=== PATIENT | female | born 1970 | race Caucasian/White ===

== ENCOUNTER → 2016-05-10 | Emergency (ER) | payer OTHER ==
[~2016-05-10] VITALS: Ht 167.6 cm; Wt 88.5 kg
[~2016-05-10] MED LIST: IV NS 0.9% 1,000 ML BAG IV ONE; IV NS 0.9% 1,000 ML ONE; IV SET PRIMARY PUMP SET 1 EA INFUS.SET MC ONE; LORA2TAB PO; MORPHINE SULFATE INJ 2 MG/ML DISP.SYRIN IV ONE; MORPHINE SULFATE INJ 4 MG/ML DISP.SYRIN ONE; OMEP20CA10 PO; ONDA8TAB6 PO; ONDANSETRON HCL/PF 4 MG/2 ML VIAL IVP ONE; ONDANSETRON HCL/PF 4 MG/2 ML VIAL ONE; PROM50TA5 PO; TRIM300C14 PO
[2016-05-10 09:58] LABS: BASOPHILS % (AUTO) 0.6 % (0.0-2.0); DIFF TOTAL % 100 %; EOSINOPHILS # (AUTO) 0.4 /CMM (0.0-0.7); EOSINOPHILS % (AUTO) 5.3 % (0.0-6.0); HEMATOCRIT 30 % (33-45); HEMOGLOBIN 9.3 g/dL (11.5-14.8); LYMPHOCYTES # (AUTO) 2.4 /CMM (0.8-4.8); LYMPHOCYTES % (AUTO) 30.3 % (20.0-44.0); MEAN CORPUSCULAR HEMOGLOBIN 22 PG (26.0-33.0); MEAN CORPUSCULAR HGB CONC 31 g/dl (31.0-36.0); MEAN CORPUSCULAR VOLUME 70 fL (82-100); MONOCYTES # (AUTO) 0.4 /CMM (0.1-1.30); MONOCYTES % (AUTO) 5.2 % (2.0-12.0); NEUTROPHILS # (AUTO) 4.6 /CMM (1.8-8.9); NEUTROPHILS % (AUTO) 58.6 % (43.0-81.0); PLATELET COUNT (AUTO) 200 /CMM (150-450); RED BLOOD CELL COUNT(AUTO) 4.34 MIL/uL (4.0-5.2); WHITE BLOOD COUNT (AUTO) 7.8 K/uL (4.3-11.0)
[2016-05-10 10:04] LABS: CALCIUM, SERUM 8.3 mg/dL (8.5-10.1); CREATININE 0.9 mg/dL (0.6-1.3)
[2016-05-10 10:09] LABS: ALBUMIN 3.5 g/dL (3.4-5.0); BILIRUBIN,TOTAL 0.2 mg/dL (0.2-1.0)
[2016-05-10 10:19] LABS: ANISOCYTOSIS 2+; EOSINOPHILS % (MANUAL) 1 % (0-4); INDIRECT BILIRUBIN 0.2 mg/dL (0.0-1.1); LYMPHOCYTES % (MANUAL) 31 % (16-48); MICROCYTOSIS 2+; PLATELET ESTIMATE ADEQUATE
[2016-05-10 10:20] LABS: HYPOCHROMASIA 2+; POLYCHROMASIA SLT
[2016-05-10 12:53] VITALS: BP 111/75
== END | disposition home or self-care (01) ==
LOC: ER 09:22
DX: R11.2 Nausea with vomiting, unspecified (principal); R10.84 Generalized abdominal pain; I10 Essential (primary) hypertension; K31.84 Gastroparesis; Z88.6 Allergy status to analgesic agent; Z88.4 Allergy status to anesthetic agent; Z88.5 Allergy status to narcotic agent; Z91.048 Other nonmedicinal substance allergy status
CPT/HCPCS: 36415; 80048-TC; 80076-TC; 83690-TC; 85025-TC; A4606; J2270; J2405; J7030; Z7610

== ENCOUNTER 2016-07-09 16:54 | Emergency (ER) | payer OTHER ==
[~2016-07-09] VITALS: Ht 165.1 cm; Wt 74.8 kg
[~2016-07-09 16:54] MED LIST changes: -IV NS 0.9% 1,000 ML BAG IV ONE; -IV NS 0.9% 1,000 ML ONE; -IV SET PRIMARY PUMP SET 1 EA INFUS.SET MC ONE; -MORPHINE SULFATE INJ 2 MG/ML DISP.SYRIN IV ONE; -MORPHINE SULFATE INJ 4 MG/ML DISP.SYRIN ONE; -ONDANSETRON HCL/PF 4 MG/2 ML VIAL IVP ONE; -ONDANSETRON HCL/PF 4 MG/2 ML VIAL ONE
--- NOTE | 2016-07-09 17:01 | NUR ---
PRESENTS SELF TO ED DUE TO ABDOMINAL PAIN, 12/09, NON RADIATING X 30 MINS. PATIENT IS AA04. SATING WELL ON ROOM AIR,. PATIENT REPORTED N/V/D. SKIN IS WARM TO TOUCH AND NON DIAPHORETIC. PATIENT IS AFEBRILE. VSS.
[2016-07-09] MEDS ORDERED: MORPHINE SULFATE INJ 2 MG/ML DISP.SYRIN IV ONE (17:30)
[2016-07-09] MEDS ORDERED: diphenhydrAMINE HCL 50 MG/ML VIAL IV ONE (17:30)
[2016-07-09] MEDS ORDERED: IV NS 0.9% 1,000 ML BAG IV ONE (17:30)
[2016-07-09] MEDS ORDERED: ONDANSETRON HCL/PF 4 MG/2 ML VIAL IVP ONE (17:30)
[2016-07-09] MEDS ORDERED: diphenhydrAMINE HCL 50 MG/ML VIAL ONE (17:41)
[2016-07-09] MEDS ORDERED: ONDANSETRON HCL/PF 4 MG/2 ML VIAL ONE ×2 (17:42→19:14)
[2016-07-09] MEDS ORDERED: IV NS 0.9% 1,000 ML ONE (17:42)
[2016-07-09] MEDS ORDERED: MORPHINE SULFATE INJ 4 MG/ML DISP.SYRIN ONE (17:42)
[2016-07-09] MEDS ORDERED: IV SET PRIMARY 1 EA INFUS.SET MC ONE (17:42)
[2016-07-09 17:50] LABS: BASOPHILS # (AUTO) 0.2 /CMM (0.0-0.2); BASOPHILS % (AUTO) 1.8 % (0.0-2.0); EOSINOPHILS # (AUTO) 0.2 /CMM (0.0-0.7); EOSINOPHILS % (AUTO) 1.8 % (0.0-6.0); HEMATOCRIT 32 % (33-45); HEMOGLOBIN 10.1 g/dL (11.5-14.8); LYMPHOCYTES # (AUTO) 2.1 /CMM (0.8-4.8); LYMPHOCYTES % (AUTO) 23.1 % (20.0-44.0); MEAN CORPUSCULAR HEMOGLOBIN 23 PG (26.0-33.0); MEAN CORPUSCULAR HGB CONC 32 g/dl (31.0-36.0); MEAN CORPUSCULAR VOLUME 70 fL (82-100); MONOCYTES # (AUTO) 0.4 /CMM (0.1-1.30); NEUTROPHILS # (AUTO) 6.4 /CMM (1.8-8.9); NEUTROPHILS % (AUTO) 69.3 % (43.0-81.0); PLATELET COUNT (AUTO) 225 /CMM (150-450); RDW COEFFICIENT OF VARIATION 19.5 (11.5-15.0); WHITE BLOOD COUNT (AUTO) 9.3 K/uL (4.3-11.0)
--- NOTE | 2016-07-09 17:55 | NUR ---
MEDICATED PATIENT ORDERED
[2016-07-09 17:57] LABS: CALCIUM, SERUM 8.8 mg/dL (8.5-10.1); CREATININE 1.1 mg/dL (0.6-1.3); POTASSIUM 3.4 mmol/L (3.5-5.1)
[2016-07-09 18:03] LABS: ALBUMIN 3.9 g/dL (3.4-5.0); BILIRUBIN,TOTAL 0.3 mg/dL (0.2-1.0); TOTAL PROTEIN, SERUM 7.3 g/dL (6.4-8.2)
[2016-07-09] MEDS ORDERED: HALOPERIDOL LACTATE INJ 5 MG/ML VIAL IVP ONE (18:30)
[2016-07-09] MEDS ORDERED: HALOPERIDOL LACTATE INJ 5 MG/ML VIAL ONE (18:35)
--- NOTE | 2016-07-09 19:10 | NUR ---
REPORT GIVEN TO NURSE TO JAD FOR MARY
--- NOTE | 2016-07-09 19:21 | NUR ---
MEDICATED PT ORDERED
[2016-07-09] MEDS ORDERED: ONDANSETRON HCL/PF 4 MG/2 ML VIAL IV ONE (19:30)
[2016-07-09 19:37] VITALS: BP 138/80
--- NOTE | 2016-07-09 19:38 | NUR ---
Patient discharged to home in stable condition. Written and verbal after care instructions given. Patient verbalizes understanding of instruction.IV removed. Catheter intact and site benign. Pressure and 4x4 applied to site. No bleeding noted. PT ambulatory with a steady gait VITAL SIGNS WITHIN NORMAL LIMITS.
== END 2016-07-09 19:40 | disposition home or self-care (01) ==
LOC: ER 16:56
DX: R10.84 Generalized abdominal pain (principal); G89.29 Other chronic pain; R19.7 Diarrhea, unspecified; F41.9 Anxiety disorder, unspecified; D64.9 Anemia, unspecified; E87.6 Hypokalemia; I10 Essential (primary) hypertension; Z88.6 Allergy status to analgesic agent; Z88.5 Allergy status to narcotic agent; Z88.8 Allergy status to other drugs, medicaments and biological substances
CPT/HCPCS: 36415; 80048-TC; 80076-TC; 83690-TC; 84703-TC; 85025-TC; A4606; J1200; J1630; J2270; J2405; J7030; Z7610

== ENCOUNTER 2016-09-01 12:03 | Emergency (ER) | payer OTHER ==
[~2016-09-01] VITALS: Ht 172.7 cm; Wt 101.2 kg
--- NOTE | 2016-09-01 12:07 | NUR ---
PT BB FAMILY; LOWER ABD PAIN WITH NAUSEA SINCE LAST NIGHT. PLACED ON MONITOR. AWAITING MD ORDER
--- NOTE | 2016-09-01 12:40 | NUR ---
RT FOOT #20 IV ACCESS. BLOOD SAMPLE COLLECTED SENT TO LAB
[2016-09-01 12:50] LABS: BASOPHILS # (AUTO) 0.2 /CMM (0.0-0.2); BASOPHILS % (AUTO) 1.9 % (0.0-2.0); EOSINOPHILS # (AUTO) 0.1 /CMM (0.0-0.7); EOSINOPHILS % (AUTO) 0.6 % (0.0-6.0); HEMATOCRIT 31 % (33-45); LYMPHOCYTES # (AUTO) 1.9 /CMM (0.8-4.8); LYMPHOCYTES % (AUTO) 19.1 % (20.0-44.0); MEAN CORPUSCULAR HEMOGLOBIN 23 PG (26.0-33.0); MEAN CORPUSCULAR HGB CONC 32 g/dl (31.0-36.0); MEAN CORPUSCULAR VOLUME 71 fL (82-100); MONOCYTES # (AUTO) 0.3 /CMM (0.1-1.30); MONOCYTES % (AUTO) 2.6 % (2.0-12.0); NEUTROPHILS # (AUTO) 7.6 /CMM (1.8-8.9); NEUTROPHILS % (AUTO) 75.8 % (43.0-81.0); PLATELET COUNT (AUTO) 241 /CMM (150-450); RDW COEFFICIENT OF VARIATION 19.6 (11.5-15.0); RED BLOOD CELL COUNT(AUTO) 4.41 MIL/uL (4.0-5.2); WHITE BLOOD COUNT (AUTO) 10.1 K/uL (4.3-11.0)
[2016-09-01 12:59] LABS: CALCIUM, SERUM 8.9 mg/dL (8.5-10.1); CARBON DIOXIDE 23 mmol/L (21-32); CHLORIDE 105 mmol/L (98-107); CREATININE 0.8 mg/dL (0.6-1.3); GLUCOSE 81 mg/dL (74-106); POTASSIUM 4.2 mmol/L (3.5-5.1); SODIUM SERUM 138 mmol/L (136-145); UREA NITROGEN, BLOOD 14 mg/dL (7-18)
[2016-09-01 13:02] LABS: INR 0.99 (0.87-1.13); PROTHROMBIN TIME 10.3 SECS (9.5-12.7)
[2016-09-01 13:05] LABS: ALANINE AMINOTRANSFERASE 11 U/L (12-78); ALBUMIN 3.7 g/dL (3.4-5.0); ALKALINE PHOSPHATASE 66 U/L (46-116); ASPARTATE AMINOTRANSFERASE 12 U/L (15-37); BILIRUBIN,DIRECT 0.1 mg/dL (0.0-0.2); BILIRUBIN,TOTAL 0.4 mg/dL (0.2-1.0); LIPASE 135 U/L (73-393); TOTAL PROTEIN, SERUM 7.5 g/dL (6.4-8.2)
[2016-09-01 13:07] LABS: TROPONIN I < 0.017 ng/mL (0.00-0.056)
--- NOTE | 2016-09-01 13:07 | NUR ---
URINE SAMPLE COLLECTED SENT TO LAB
[2016-09-01 13:15] LABS: BILIRUBIN,URINE Negative (NEGATIVE); BLOOD, URINE Moderate Ery/uL (NEGATIVE); COLOR,URINE Yellow (YELLOW); KETONES,URINE Trace (NEGATIVE); LEUKOCYTE ESTERASE ,URINE Negative (NEGATIVE); NITRITE, URINE Negative (NEGATIVE); PROTEIN,URINE Trace mg/dl (NEGATIVE); UGLUCOSE Negative (NEGATIVE); UROBILINOGEN,URINE 0.2 EU/dL (0.2)
[2016-09-01 13:17] LABS: APPEARANCE,URINE Hazy (CLEAR)
[2016-09-01] MEDS ORDERED: ONDANSETRON HCL/PF 4 MG/2 ML VIAL ONE ×3 (13:18→18:44)
[2016-09-01] MEDS ORDERED: HYDROMORPHONE 1 MG/1 ML DISP.SYRIN ONE ×3 (13:18→18:44)
[2016-09-01 13:23] LABS: LYMPHOCYTES % (MANUAL) 16 % (16-48); MONOCYTES % (MANUAL) 3 % (0-11.0); NEUTROPHILS % (MANUAL) 81 (42-76)
[2016-09-01 13:24] LABS: BACTERIA,URINE Few /HPF (None Seen); MUCUS,URINE Few /LPF (None Seen); RBC,URINE 0-2 /HPF (0-2); SQUAMOUS EPITHELIAL CELL,UR Few /HPF (None Seen)
[2016-09-01] MEDS ORDERED: HYDROMORPHONE 1 MG/1 ML DISP.SYRIN IV ONE ×3 (13:30→19:00)
[2016-09-01] MEDS ORDERED: CLID1CAP PO (13:30)
[2016-09-01] MEDS ORDERED: VENL75CA56 PO (13:30)
[2016-09-01] MEDS ORDERED: OMEP40CA37 PO (13:30)
[2016-09-01] MEDS ORDERED: ONDA4SOL2 PO (13:30)
[2016-09-01] MEDS ORDERED: ONDANSETRON HCL/PF - ER 4 MG/2 ML VIAL IV ONE ×2 (13:30→16:00)
[2016-09-01] MEDS ORDERED: DIAZ10TA PO (13:30)
[2016-09-01] MEDS ORDERED: RANI150T12 PO (13:30)
[2016-09-01] MEDS ORDERED: ALPR2TAB2 PO (13:30)
--- NOTE | 2016-09-01 13:49 | NUR ---
[facility]
--- NOTE | 2016-09-01 13:59 | NUR ---
GAVE REPORT TO JAGDISH LIRA ROOM 311-[address] [facility] DX [facility]NC[facility].
--- NOTE | 2016-09-01 14:47 | NUR ---
VERBAL ORDER FROM DR CHUNG DILAUDID 1MG IVP AND ZOFRAN 4 MG IVP X1 GIVEN VIA RT FOOT #22
--- NOTE | 2016-09-01 14:51 | NUR ---
CALLED [employer] ALARM FIELD TECHNICIAN WAS PAGED.
--- NOTE | 2016-09-01 16:31 | NUR ---
GAVE REPORT TO DESTINY MIGUEL SUP FOR [facility] PT ACCEPTED WILL CALL BACK FOR A ROOM NUMBER
--- NOTE | 2016-09-01 16:52 | NUR ---
PATIENT WILL BE TRANSFERED TO [facility] . [address] [place] [id number] LINDA MILLER
[2016-09-01 17:21] VITALS: BP 103/44
--- NOTE | 2016-09-01 17:46 | NUR ---
GAVE REPORT TO [employer] DRE LIRA
--- NOTE | 2016-09-01 18:14 | NUR ---
CALLED [facility] FOR [facility] WAS GIVEN.
--- NOTE | 2016-09-01 19:05 | NUR ---
VERBAL ORDER ZOFRAN 4 MG VIA IVP FROM DR GROSS
[2016-09-01] MEDS ORDERED: ONDANSETRON HCL/PF 4 MG/2 ML VIAL IV ONE (19:30)
== END 2016-09-01 19:09 | disposition short-term general hospital (02) ==
LOC: ER 12:04
DX: R55 Syncope and collapse (principal); R10.84 Generalized abdominal pain; D64.9 Anemia, unspecified; G89.29 Other chronic pain; I10 Essential (primary) hypertension; F12.10 Cannabis abuse, uncomplicated; K31.84 Gastroparesis; Z88.0 Allergy status to penicillin; Z88.6 Allergy status to analgesic agent; Z88.5 Allergy status to narcotic agent; Z88.8 Allergy status to other drugs, medicaments and biological substances
CPT/HCPCS: 36415; 70450; 71010; 80048; 80076; 80305; 81001; 82962; 83690; 84484; 84703; 85025; 85730; 87081; 96374; 96375; 96376; 99285; A4606; G0480; J1170 ×3; J2405 ×3; 81000-TC; Z7610

== ENCOUNTER 2018-01-29 16:26 | Emergency (ER) | payer MEDICAID, OTHER ==
[~2018-01-29] VITALS: Ht 160 cm; Wt 79.4 kg
[~2018-01-29 16:26] MED LIST changes: +ALPR2TAB2 PO; +CLID1CAP PO; +DIAZ10TA PO; -LORA2TAB PO; -OMEP20CA10 PO; +OMEP40CA37 PO; +ONDA4SOL2 PO; -ONDA8TAB6 PO; -PROM50TA5 PO; +RANI150T43 PO; -TRIM300C14 PO; +VENL75CA56 PO
--- NOTE | 2018-01-29 16:40 | NUR ---
PT BIB [facility]. COMPLAINING OF 'SEVERE ABDOMINAL PAIN". PT AOX4. NO SOB NOTED. NO ACUTE DISTRESS NOTED. PT AMBULATORY W/STEADY GAIT. AWAITING MD LORD.
[2018-01-29] MEDS ORDERED: ONDANSETRON HCL/PF 4 MG/2 ML VIAL ONE (17:00)
[2018-01-29] MEDS ORDERED: IV NS 0.9% 1,000 ML BAG IV ONE (17:00)
[2018-01-29] MEDS ORDERED: HYDROMORPHONE INJ 2 MG/ML DISP.SYRIN IV ONE (17:00)
[2018-01-29] MEDS ORDERED: ONDANSETRON HCL/PF 4 MG/2 ML VIAL IVP ONE (17:00)
[2018-01-29] MEDS ORDERED: HYDROMORPHONE 1 MG/1 ML DISP.SYRIN ONE (17:00)
[2018-01-29 17:02] LABS: BASOPHILS # (AUTO) 0.1 /CMM (0.0-0.2); BASOPHILS % (AUTO) 1.1 % (0.0-2.0); EOSINOPHILS % (AUTO) 1.2 % (0.0-6.0); HEMATOCRIT 29 % (33-45); LYMPHOCYTES # (AUTO) 2.2 /CMM (0.8-4.8); LYMPHOCYTES % (AUTO) 25.8 % (20.0-44.0); MEAN CORPUSCULAR HGB CONC 31 g/dl (31.0-36.0); MEAN CORPUSCULAR VOLUME 66 fL (82-100); MONOCYTES # (AUTO) 0.7 /CMM (0.1-1.30); MONOCYTES % (AUTO) 8.3 % (2.0-12.0); NEUTROPHILS # (AUTO) 5.4 /CMM (1.8-8.9); NEUTROPHILS % (AUTO) 63.6 % (43.0-81.0); PLATELET COUNT (AUTO) 305 /CMM (150-450); WHITE BLOOD COUNT (AUTO) 8.4 K/uL (4.3-11.0)
[2018-01-29 17:26] LABS: ALBUMIN 3.9 g/dL (3.4-5.0); BILIRUBIN,DIRECT 0.1 mg/dL (0.0-0.2); BILIRUBIN,TOTAL 0.6 mg/dL (0.2-1.0); CALCIUM, SERUM 8.8 mg/dL (8.5-10.1); CREATININE 1.1 mg/dL (0.6-1.3); TOTAL PROTEIN, SERUM 7.4 g/dL (6.4-8.2)
[2018-01-29 17:34] LABS: POTASSIUM 2.6 mmol/L (3.5-5.1)
[2018-01-29] MEDS ORDERED: POTASSIUM CL. PREMIX PERIPHER. 50 ML ONE (17:42)
[2018-01-29 17:54] LABS: EOSINOPHILS % (MANUAL) 2 % (0-4); LYMPHOCYTES % (MANUAL) 28 % (16-48); MONOCYTES % (MANUAL) 6 % (0-11.0); NEUTROPHILS % (MANUAL) 64 (42-76)
[2018-01-29] MEDS ORDERED: POTASSIUM CL. PREMIX PERIPHER. 50 ML IV SCH (18:00)
[2018-01-29] MEDS ORDERED: FAMOTIDINE/PF INJ 20 MG/2 ML VIAL IV ONE ×2 (18:00→18:03)
[2018-01-29] MEDS ORDERED: POTASSIUM CHLORIDE 20 MEQ TAB.PRT.SR PO ONE ×2 (19:15→19:30)
[2018-01-29 19:24] VITALS: BP 116/86
== END 2018-01-29 19:25 | disposition home or self-care (01) ==
LOC: ER 16:28
DX: R10.84 Generalized abdominal pain (principal); I10 Essential (primary) hypertension; K31.84 Gastroparesis; F17.200 Nicotine dependence, unspecified, uncomplicated; F12.10 Cannabis abuse, uncomplicated; Z88.0 Allergy status to penicillin; Z88.5 Allergy status to narcotic agent; Z88.6 Allergy status to analgesic agent; Z88.8 Allergy status to other drugs, medicaments and biological substances; Z60.2 Problems related to living alone
CPT/HCPCS: 36415; 80048-TC; 80076-TC; 83690-TC; 85025-TC; A4606; J1170; J2405; J3480; J3490; J7030; Z7610

== ENCOUNTER 2018-07-04 13:56 | Emergency (ER) | payer MEDICAID ==
[~2018-07-04] VITALS: Ht 160 cm; Wt 79.4 kg
[2018-07-04 14:05] VITALS: BP 129/87
[2018-07-04] MEDS ORDERED: HYDROCODONE/APAP 5/325MG 1 EACH TABLET PO ONE (15:00)
[2018-07-04] MEDS ORDERED: ONDANSETRON HCL/PF 4 MG/2 ML VIAL IM ONE (15:00)
== END 2018-07-04 14:49 | disposition home or self-care (01) ==
LOC: ER 13:58
DX: G89.4 Chronic pain syndrome (principal); R10.32 Left lower quadrant pain; I10 Essential (primary) hypertension; F17.200 Nicotine dependence, unspecified, uncomplicated; F12.10 Cannabis abuse, uncomplicated; Z76.5 Malingerer [conscious simulation]; Z60.2 Problems related to living alone; Z88.5 Allergy status to narcotic agent; Z88.6 Allergy status to analgesic agent; Z88.0 Allergy status to penicillin; Z88.8 Allergy status to other drugs, medicaments and biological substances; Z88.9 Allergy status to unspecified drugs, medicaments and biological substances
CPT/HCPCS: Z7502